=== PATIENT | female | born 1960 ===

== ENCOUNTER 2025-03-08 06:18 | Day surgery (SDC) | payer OTHER, SELFPAY ==
[2025-03-02 14:34] LABS: Hematocrit 42.5 % (37.0-47.0); Hemoglobin 14.1 g/dL (12.0-16.0); Mean Corp Hgb Conc. 33.2 g/dL (33.0-37.0); Mean Corpuscular Volume 90.4 fL (81.0-99.0); Platelet Count 235 10^3/uL (130-400); Red Cell Dist. Width 12.6 % (11.5-14.5)
[2025-03-02 14:50] LABS: ALT (SGPT) 28 U/L (0-35); AST (SGOT) 31 U/L (14-36); Albumin 4.5 g/dl (3.5-5.0); Alkaline Phosphatase 100 U/L (38-126); Blood Urea Nitrogen 15 mg/dl (7-17); Calcium 10.2 mg/dl (8.4-10.2); Carbon Dioxide 28 mmol/L (22-30); Chloride 107 mmol/L (98-107); Glucose 99 mg/dl (70-99); Potassium 4.5 mmol/L (3.5-5.1); Sodium 140 mmol/L (135-145); Total Protein 7.3 g/dl (6.3-8.2); eGFR > 60.00
--- NOTE | 2025-03-03 08:44 | PTCARENOTE ---
Pt's T&S resulted with postive antibodies. Spoke to Gia in blood bank, full antibody detection is pending. Will ask the patient few questions regarding history, per BB request, during interview later this AM. Zuniga in Dr. Alfredo's office was made
aware of the positive antibodies. BB stated they will be reaching out to the office as well once screening fully completed. Pt will need a repeat full T&S day of surgery, they will send a card to [facility]. Checklist updated also.
[2025-03-08] VITALS (10 sets, daily range): BP systolic 100–145; BP diastolic 60–85; BMI 32.2
[2025-03-08] MEDS: NORMOSOL-R/PLASMALYTE-A 1000 IV (09:10)
[2025-03-08] MEDS: TYLENOL 1000 MG PO (09:24)
[2025-03-08] MEDS: METHOCARBAMOL 1500 MG PO (09:25)
[2025-03-08] MEDS: LYRICA 150 MG PO (09:26)
[2025-03-08] MEDS: CELEBREX 200 MG PO (09:26)
[2025-03-08] MEDS: DILAUDID 0.25 MG IV (11:32)
[2025-03-08] MEDS: DILAUDID 0.5 MG IV ×2 (11:53→12:14)
== END 2025-03-08 14:00 | disposition home or self-care (01) ==
LOC: SDS 06:18
PROVIDERS: ATTENDING PHYSICIAN Orthopaedic Surgery Orthopaedic Surgery of the Spine; FAMILY PHYSICIAN Family Medicine
DX: M48.062 Spinal stenosis, lumbar region with neurogenic claudication (principal); M51.26 Other intervertebral disc displacement, lumbar region
CPT/HCPCS: 63030; 36415; 72020; 80053; 85027; 86850; 86870; 86900; 86901; 86905; 87070; 93005